=== PATIENT | male | born 1975 | race Caucasian/White ===

== ENCOUNTER 2016-05-30 12:04 | Emergency (ER) | payer OTHER ==
--- NOTE | ~2016-05-30 | ER ---
PATIENT'S NAME: CYNDI [facility] AGE: 40 Y [address] ROOM: [place] [address] LOCATION: [facility] ADMIT DATE: 05/30/2016 ER/Outpatient Report DISCHARGE DATE: 05/30/2016 FAMILY PHYSICIAN: Everette Min MD ATTENDING PHYSICIAN: Jimena Mayer Time of Arrival: 1204 hours. Time of Evaluation: 1230 hours. CHIEF COMPLAINT: Right foot pain. HISTORY OF PRESENT ILLNESS: This is a 40-year-old male who presents to the ER. He states he injured his right foot on Tuesday. The patient states he was wearing a steel-toed boot when he was coming down off a stool, and he feels like he injured at that time. He states he had a little tiny area of bruising there. He states over this past week it has gotten more swollen. He feels like it is more bruised and some redness has been getting bigger as well. He states the pain is located on the ball of his right foot. He was seen at urgent care as well as saw Dr. Min. He states they did do some x-rays and worked him up for some gout. The patient states that he was not given anything for pain. He is just having a difficult time with ambulation because of this. He has not been running any fevers. He denies any other problems at this time. ALLERGIES: NO KNOWN ALLERGIES. MEDICATIONS: Please see medication list in nurse's notes. PAST MEDICAL HISTORY: Appendectomy. SOCIAL HISTORY: Denies smoking, drug, or alcohol use. REVIEW OF SYSTEMS: A 10-point review of system was completed and was negative with the exception of those discussed in the HPI. PHYSICAL EXAMINATION: VITAL SIGNS: Weight 161.6 kg taken, blood pressure is 141/84, pulse 81, respirations 20, temperature 97 degrees tympanically, saturations 96% on room air. [place] Coma Score is 15. PATIENT'S NAME: CYNDI [facility] AGE: 40 Y [address] ROOM: [place] [address] LOCATION: [facility] ADMIT DATE: 05/30/2016 ER/Outpatient Report DISCHARGE DATE: 05/30/2016 FAMILY PHYSICIAN: Everette Min MD ATTENDING PHYSICIAN: Jimena Mayer GENERAL: Alert and obese male, in mild distress. HEENT. Head: Normocephalic. Eyes: Pupils are equal and reactive to light. He does display moist mucous membranes. LUNGS: Clear to auscultation bilaterally. No wheezes or crackles. Normal respiratory effort. HEART: Regular rate and rhythm. No lifts, thrills or murmurs. EXTREMITIES: No clubbing or cyanosis. He does have swelling noted to the ball of his right foot. There is a blood blister there, and there is erythema surrounding that blood blister. It is quite tender to palpation. It is a little bit warm to touch as well. He has no pain into the right hallux joint, but with range of motion of his right hallux, it does cause pressure against that area, on the ball of his foot, it does cause pain. He has good pulse to that foot, full range of motion in all other limbs. NEUROLOGIC: Cranial nerves II through XII are grossly intact. Gait is steady with obvious limp. LABORATORY DATA: CBC: White count is 11.7, hemoglobin is 14.4, platelets 259, ANC is 8.0, sedimentation rate is 18. CMS: Albumin is 3.3. A/G ratio is 0.8, otherwise unremarkable. CRP is 2.19. Uric acid is 6.2. IMPRESSION: Right foot cellulitis. ASSESSMENT AND PLAN: We did discuss the patient's care with Dr. Mayer. Dr. Mayer also evaluated the patient. We did give the patient [place] here in the emergency room for his pain. We will dismiss him to home with a prescription for Keflex and [place] to use as directed. We would like him to soak his foot in Epsom salt, keep that wound clean and covered. We will give him some crutches so he can try to keep off his foot as much as possible, and he needs to monitor his skin closely. We did draw around erythematic site with a Sharpie marker, so we can monitor the redness. We would like him to follow up with his primary care physician in 1 to 2 days. The patient understands and agrees with care. SUDHIR MORA PA-C FOR MD DARLIN MARCUM/modl /[id number] d: t: 06/04/16 1334, OUTPATIENT REPORT
[2016-05-30 13:35] LABS: BASOPHIL # 0.1 K/uL (0.0-0.2); BASOPHIL % 0.6 %; EOSINOPHIL # 0.3 K/uL (0.0-0.5); EOSINOPHIL % 2.8 %; HEMATOCRIT 44.9 % (37.0-53.0); HEMOGLOBIN 14.4 g/dL (12.0-17.0); IMMATURE GRANULOCYTE % 0.3 %; LYMPHOCYTE # 2.3 K/uL (0.8-4.0); LYMPHOCYTE % 19.3 %; MCH 31.7 pg (27.0-34.0); MCHC 32.1 gm/dL (32.0-36.5); MCV 98.9 fl (83.0-98.0); MONOCYTE % 8.7 %; MPV 9.2 fl (9.4-12.4); NEUTROPHIL % 68.3 %; NRBC % 0 /100WBC (0-0.00); PLATELET COUNT 259 K/uL (150-450); RBC 4.54 M/uL (4.00-6.00); RDW-CV 12.4 % (11.9-14.6); WBC 11.7 K/uL (4.0-11.0)
[2016-05-30 13:51] LABS: ALBUMIN 3.3 gm/dL (3.5-5.0); ALK PHOS 60 IU/L (33-138); ALT 42 IU/L (12-78); ANION GAP 11.1 (10.0-19.0); AST 18 IU/L (10-40); BLOOD UREA NITROGEN 17 mg/dL (6-24); CALCIUM 8.6 mg/dL (8.5-10.5); CHLORIDE 106 mMol/L (96-110); CO2 26 mMol/L (22-32); CREATININE 0.9 mg/dL (0.6-1.3); ESTIMATED GFR (MDRD EQUATION) > 60; POTASSIUM 4.1 mMol/L (3.7-5.1); SODIUM 139 mMol/L (135-145); TOTAL BILIRUBIN 0.4 mg/dL (0.0-1.5); TOTAL PROTEIN 7.2 g/dL (6.0-8.4)
== END 2016-05-30 14:55 | disposition disaster alternative care site (69) ==
LOC: GMED 12:04
PROVIDERS: Physician Assistant Medical
DX: L03.115 Cellulitis of right lower limb (principal); Z90.89 Acquired absence of other organs

== ENCOUNTER 2016-06-02 23:23 | Emergency (ER) | payer OTHER ==
--- NOTE | ~2016-06-02 | ER ---
PATIENT'S NAME: CYNDI [facility] AGE: 40 Y [address] ROOM: [place] [address] LOCATION: [facility] ADMIT DATE: 06/02/2016 ER/Outpatient Report DISCHARGE DATE: 06/03/2016 FAMILY PHYSICIAN: Everette Min MD ATTENDING PHYSICIAN: Hannah Griffin HISTORY OF PRESENT ILLNESS: This is a 40-year-old male, who presents today with chief complaint of right foot cellulitis. The patient was seen here on the which was 3 days ago for a blister at the base of the big toe. He says that they daniel a demetrio around it and it has gotten worse since then. He says it popped just tonight while they were coming in and then now there is increased swelling and redness around his foot. He also complains of pain that shooting up his leg. When it is max, pain is 9/10, good currently. When he has his foot up and he is just resting, it is a 1/10. He also does report some fevers, the T-max was 100.8. He has not had anything for it though. He has been taking Keflex that he was prescribed and some [place], but he says the [place] is not really helping him at all either. He says that he has been trying to stay off it. Very painful to walk on it. No other complaints at this time. No nausea, vomiting, or diarrhea. No mottling of the foot. No other complaints. PAST MEDICAL HISTORY: Includes morbid obesity. PAST SURGICAL HISTORY: Includes appendectomy. SOCIAL HISTORY: He does not smoke, drink or use any drugs. ALLERGIES: NONE. MEDICATIONS: Please see med list. REVIEW OF SYSTEMS: Reviewed by me and negative with the exception of those discussed in the HPI. PHYSICAL EXAMINATION: VITAL SIGNS: The patient is 5 feet 5 inches. He weighs 158.6 kilos. His blood pressure is 135/76. His heart rate is 118 beats per minute at this time. Respiratory rate is 18. Sats are 94% on room air. GENERAL: The patient looks mildly uncomfortable, although nontoxic. He is sitting upright in stretcher with his legs spread out. PATIENT'S NAME: HANNA [facility] AGE: 40 Y [address] ROOM: [place], [place] [address] LOCATION: [facility] ADMIT DATE: 06/02/2016 ER/Outpatient Report DISCHARGE DATE: 06/03/2016 FAMILY PHYSICIAN: Everette Min MD ATTENDING PHYSICIAN: Hannah Griffin NEURO: He is alert and oriented x4. He is not lethargic or altered. HEART: His heart rate, he is tachycardic to 105 beats per minute at this time. He says it is worse when he appears to be in pain though. LUNGS: His lungs sounds are clear, slightly diminished at the bases. ABDOMEN: He is obese, but soft, nontender, and nondistended. No guarding or rebound. EXTREMITIES: The right foot at the base of the big toe, there is an area of some mild redness which looks like where the blister popped. It is tender to palpation there, but no crepitus. I see the old pen demetrio from where they daniel a [place] around the area of redness. It is definitely spread beyond that. It is mildly warm to touch and mildly edematous, but there is no induration. There is no crepitus. It is not erysipelas either. There is no purulent drainage. There is no fluctuance. No induration. I can feel a pulse as well. He is able to wiggle all his toes. I do not see any areas of necrosis. EMERGENCY ROOM COURSE: The patient was established an IV. Gave him some morphine. We also checked some blood work and did an x-ray. X-ray on my read looks about the same that it did before. CBC shows a white count of 15.9, which is elevated from before when it was around 12, H and H is 14.7/44.5, platelets are 275. He has no bandemia. ESR is elevated at 54. CRP is also elevated at 13. His CMS was done showing sodium of 138, potassium 3.8, chloride 104, CO2 23, anion gap 14.8, glucose 127, creatinine is 1.1, BUN is 16, bilirubin is 0.4, alkaline phosphatase is 73, AST 22, ALT 34, GFR greater than 60. CRP as mentioned, but was 13.9. I went back to reassess the patient. We will give him a dose of ceftriaxone. He is afebrile here. He has normal vital signs. The tachycardia has resolved with some pain control and it is now around 98 beats per minute. We will give him a dose of ceftriaxone home and put him on clindamycin. We will have him do a wound check with his primary care doctor in 2 days. He understands reasons to come back to the ER sooner though. IMPRESSION: Right toe cellulitis. MD DANIELA ENRIQUEZ/arie /[id number] d: 06/03/162 t: 06/04/16 1816, OUTPATIENT REPORT
[2016-06-03 00:06] LABS: BASOPHIL # 0.1 K/uL (0.0-0.2); BASOPHIL % 0.3 %; EOSINOPHIL # 0.2 K/uL (0.0-0.5); EOSINOPHIL % 1.5 %; HEMATOCRIT 44.5 % (37.0-53.0); HEMOGLOBIN 14.7 g/dL (12.0-17.0); IMMATURE GRANULOCYTE # 0.1 K/uL (0.0-0.3); IMMATURE GRANULOCYTE % 0.4 %; LYMPHOCYTE # 2.5 K/uL (0.8-4.0); LYMPHOCYTE % 15.6 %; MCH 31.7 pg (27.0-34.0); MCV 96.1 fl (83.0-98.0); MONOCYTE # 1.2 K/uL (0.0-1.0); MONOCYTE % 7.6 %; MPV 9.2 fl (9.4-12.4); NEUTROPHIL # (ANC) 11.9 K/uL (1.4-9.0); NEUTROPHIL % 74.6 %; NRBC % 0 /100WBC (0-0.00); PLATELET COUNT 275 K/uL (150-450); RBC 4.63 M/uL (4.00-6.00); RDW-CV 12.2 % (11.9-14.6); WBC 15.9 K/uL (4.0-11.0)
[2016-06-03 00:27] LABS: ALBUMIN 3.2 gm/dL (3.5-5.0); ALK PHOS 73 IU/L (33-138); ALT 34 IU/L (12-78); BLOOD UREA NITROGEN 16 mg/dL (6-24); CHLORIDE 104 mMol/L (96-110); CO2 23 mMol/L (22-32); CREATININE 1.1 mg/dL (0.6-1.3); ESTIMATED GFR (MDRD EQUATION) > 60; SODIUM 138 mMol/L (135-145); TOTAL BILIRUBIN 0.4 mg/dL (0.0-1.5); TOTAL PROTEIN 7.9 g/dL (6.0-8.4)
[2016-06-03 00:36] LABS: ANION GAP 14.8 (10.0-19.0); AST 22 IU/L (10-40); POTASSIUM 3.8 mMol/L (3.7-5.1)
== END 2016-06-03 01:24 | disposition disaster alternative care site (69) ==
LOC: GMED 23:23
PROVIDERS: Emergency Medicine
DX: L03.031 Cellulitis of right toe (principal); E66.01 Morbid (severe) obesity due to excess calories; Z90.49 Acquired absence of other specified parts of digestive tract
CPT/HCPCS: J0696; J2270